=== PATIENT | female | born 1985 | race American Indian/Alaskan Native ===

== ENCOUNTER 2016-12-24 15:47 | Emergency (ER) | payer MEDICAID, OTHER | END 2016-12-24 16:30 | disposition left against medical advice (07) | LOC: DL.ED 15:47 | DX: Z53.21 Procedure and treatment not carried out due to patient leaving prior to being seen by health care provider (principal) ==

== ENCOUNTER 2017-02-26 10:16 | Emergency (ER) | payer MEDICAID, OTHER ==
[2017-02-26 10:30] VITALS: BP 116/56
--- NOTE | 2017-02-26 10:33 | EDM.PDOC ---
[id number] TOOTH Time Seen by Provider: 02/26/17 10:32 Source of Information: Reports: Patient, RN, RN Notes Reviewed History Limitations: Reports: No Limitations - History of Present Illness INITIAL COMMENTS - FREE TEXT/NARRATIVE: Complaint of severe dental pain wit swelling to left face, Onset several days ago of pain with swelling starting yesterday. Denies fever/chills or purulent drainage from tooth or gums. Has not been able to see a dentist, Quality: Reports: Ache Severity: Severe Improves with: Reports: None Worsens with: Reports: None Associated Symptoms: Reports: No Other Symptoms Upper Tooth/Teeth Pain Score (Numeric/FACES): 8 - Related Data Allergies Allergy/AdvReac Type Severity Reaction Status Date / Time No Known Allergies Allergy Verified 02/26/17 10:26 Home Meds: Home Meds Ibuprofen 200 mg PO ASDIRECTED PRN 10/09/15 [History] Past Medical History - Past Health History Medical/Surgical History: Denies Medical/Surgical History HEENT History: Reports: None Cardiovascular History: Reports: None Respiratory History: Reports: None Gastrointestinal History: Reports: Gastritis, GERD, Other (See Below) Other Gastrointestinal History: suruury as a young child to remove hair ball, ulcers Genitourinary History: Reports: None 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: 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: 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 Musculoskeletal History: Reports: None Neurological History: Reports: None Psychiatric History: Reports: None Endocrine/Metabolic History: Reports: None Hematologic History: Reports: None Immunologic History: Reports: None Oncologic (Cancer) History: Reports: None Dermatologic History: Reports: None - Infectious Disease History Infectious Disease History: Reports: None - Past Surgical History Head Surgeries/Procedures: Reports: None Social & Family History - Family History Family Medical History: Noncontributory - Tobacco Use Smoking Status *Q: Current Every Day Smoker Years of Tobacco use: 10 Packs/Tins Daily: 0.5 Used Tobacco, but Quit: No Second Hand Smoke Exposure: Yes - Caffeine Use Caffeine Use: Reports: Energy Drinks, Soda, Tea - Recreational Drug Use Recreational Drug Use: Yes Recreational Drug Type: Reports: Marijuana/Hashish Recreational Drug Use Frequency: Socially ED ROS ENT - Review of Systems Review Of Systems: ROS reveals no pertinent complaints other than HPI. ED EXAM, ENT - Physical Exam Exam: See Below Exam Limited By: No Limitations General Appearance: Alert, WD/WN, No Apparent Distress Eye Exam: Bilateral Eye: Normal Inspection Ears: Normal External Exam, Normal Canal, Hearing Grossly Normal, Normal TMs Nose: Normal Inspection, Normal Mucousa, No Blood Mouth/Throat: Normal Inspection, Normal Gums, Normal Lips, Normal Oropharynx, Normal Teeth Head: Other (swelling to left dface with tenderness with erythema, and with increased warmth. Left maxillary molars with extensive chronic decay and gum swelling and tenderness without fluctuance.) Neck: Normal Inspection, Supple, Non-Tender, Full Range of Motion Respiratory/Chest: No Respiratory Distress Cardiovascular: Normal Peripheral Pulses, Regular Rate, Rhythm, No Edema, No Gallop, No JVD, No Murmur, No Rub Neurological: Alert, Oriented, CN II-XII Intact, Normal Cognition, Normal Gait, Normal Reflexes, No Motor/Sensory Deficits Psychiatric: Normal Affect, Normal Mood Skin: Warm, Dry, Intact, Normal Color, No Rash Lymphatic: No Adenopathy Course - Vital Signs Last Recorded V/S: Last Vital Signs Temp 36.2 C 02/26/17 10:27 Pulse 70 02/26/17 10:27 Resp 16 02/26/17 10:27 BP 116/56 L 02/26/17 10:27 Pulse Ox 100 02/26/17 10:27 - Orders/Labs/Meds Meds: Medications Discontinued Medications Generic Name Dose Route Start Last Admin Trade Name Brandt PRN Reason Stop Dose Admin Amoxicillin 500 mg 02/26/17 10:37 02/26/17 10:44 Amoxil PO 02/26/17 10:38 500 mg ONETIME ONE Administration Clindamycin HCl 300 mg 02/26/17 10:37 02/26/17 10:44 Cleocin PO 02/26/17 10:38 300 mg ONETIME ONE Administration Lidocaine HCl 15 ml 02/26/17 10:37 02/26/17 10:44 Xylocaine 2% Viscous PO 02/26/17 10:38 15 ml ONETIME ONE Administration Tramadol HCl 50 mg 02/26/17 10:38 02/26/17 10:43 Ultram PO 02/26/17 10:39 50 mg ONETIME ONE Administration Departure - Departure Time of Disposition: 10:49 Disposition: Home, Self-Care 01 Condition: good Clinical Impression: Dental abscess, Dental caries extending into dentin - Discharge Information Instructions: Dental Abscess, [id number] Forms: ED Department Discharge Additional Instructions: Rx: Amoxicillin 500mg Rx: Clindamycin 300mg Rx: Tramadol 50mg Rx: Viscous Lidocaine 2% Follow up in clinic with dentist at first available appointment.
[2017-02-26] MEDS ORDERED: Clindamycin HCl 150 MG Cap PO ONE (10:37)
[2017-02-26] MEDS ORDERED: Lidocaine 2% Viscous Solution 15 ML Cup PO ONE (10:37)
[2017-02-26] MEDS ORDERED: Amoxicillin 500 MG Cap PO ONE (10:37)
[2017-02-26] MEDS ORDERED: traMADol 50 MG Tab PO ONE (10:38)
== END 2017-02-26 10:56 | disposition home or self-care (01) ==
LOC: DL.ED 10:16
DX: K08.89 Other specified disorders of teeth and supporting structures (principal); K02.9 Dental caries, unspecified; K21.9 Gastro-esophageal reflux disease without esophagitis; F17.210 Nicotine dependence, cigarettes, uncomplicated
CPT/HCPCS: 99282; A9270

== ENCOUNTER 2018-01-21 19:26 | Emergency (ER) | payer MEDICAID, OTHER ==
[2018-01-21 20:19] VITALS: BP 133/69
[2018-01-21] MEDS ORDERED: Acetaminophen 325 MG Tab PO ONE (21:18)
--- NOTE | 2018-01-21 21:23 | EDM.PDOC ---
ED HPI GENERAL MEDICAL PROBLEM - General Chief Complaint: Upper Extremity Injury/Pain Stated Complaint: [id number] FELL DOWN STAIRS AND HURT ELBOW Time Seen by Provider: 01/21/18 21:10 Source of Information: Reports: Patient History Limitations: Reports: No Limitations - History of Present Illness INITIAL COMMENTS - FREE TEXT/NARRATIVE: This 32 yo female patient reports to the ED due to right elbow pain. The patient reports that she fell while doing her mother's laundry this afternoon hitting and extending her elbow. The patient has been attempting to rest and has taken ibuprofen for her symptoms. The patient reports she attempted to be seen at the [facility], but was not able to get in to be seen this afternoon. The patient reports no numbness or reduced range of motion. The patient reports increased pain with extending or putting pressure on her elbow. 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 [No Known Home Meds] 01/21/18 [History] Past Medical History - Past Health History Medical/Surgical History: Denies Medical/Surgical History HEENT History: Reports: None Cardiovascular History: Reports: None Respiratory History: Reports: None Gastrointestinal History: Reports: Gastritis, GERD, Other (See Below) Other Gastrointestinal History: suruury as a young child to remove hair ball, ulcers. Inflamed spleen 10 years ago. 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, Musculoskeletal History: Reports: None Neurological History: Reports: None Psychiatric History: Reports: None Endocrine/Metabolic History: Reports: None Hematologic History: Reports: None Immunologic History: Reports: None Oncologic (Cancer) History: Reports: None Dermatologic History: Reports: None - Infectious Disease History Infectious Disease History: Reports: None - Past Surgical History Head Surgeries/Procedures: Reports: None Social & Family History - Family History Family Medical History: Noncontributory - Tobacco Use Smoking Status *Q: Current Every Day Smoker Years of Tobacco use: 13 Packs/Tins Daily: 1 Used Tobacco, but Quit: No Second Hand Smoke Exposure: No - Caffeine Use Caffeine Use: Reports: Coffee, Soda - Recreational Drug Use Recreational Drug Use: Yes Drug Use in Last 12 Months: Yes Recreational Drug Type: Reports: Marijuana/Hashish Recreational Drug Use Frequency: Daily Review of Systems - Review of Systems Review Of Systems: ROS reveals no pertinent complaints other than HPI. ED EXAM, GENERAL - Physical Exam Exam: See Below Exam Limited By: No Limitations General Appearance: Alert, WD/WN, Mild Distress, Thin Eye Exam: Bilateral Eye: Corneal Abrasion, Normal Inspection, PERRL Ears: Normal External Exam, Normal Canal, Hearing Grossly Normal, Normal TMs Nose: Normal Inspection, Normal Mucosa, No Blood Throat/Mouth: Normal Inspection, Normal Lips, Normal Teeth, Normal Gums, Normal Oropharynx, Normal Voice, No Airway Compromise Head: Atraumatic, Normocephalic Neck: Normal Inspection, Supple, Non-Tender, Full Range of Motion Respiratory/Chest: No Respiratory Distress, Lungs Clear, Normal Breath Sounds, No Accessory Muscle Use, Chest Non-Tender Cardiovascular: Normal Peripheral Pulses, Regular Rate, Rhythm, No Edema, No Gallop, No JVD, No Murmur, No Rub GI/Abdominal: Normal Bowel Sounds, Soft, Non-Tender, No Organomegaly, No Distention, No Abnormal Bruit, No Mass (Female) Exam: Deferred Rectal (Female) Exam: Deferred Back Exam: Normal Inspection, Full Range of Motion, NT Extremities: Normal Inspection, Normal Range of Motion, Non-Tender, Normal Capillary Refill, No Pedal Edema Neurological: Alert, Oriented, CN II-XII Intact, Normal Cognition, Normal Gait, Normal Reflexes, No Motor/Sensory Deficits Psychiatric: Normal Affect, Normal Mood Skin Exam: Warm, Dry, Intact, Normal Color, No Rash Lymphatic: No Adenopathy Course - Vital Signs Last Recorded V/S: Last Vital Signs Temp 36.8 C 01/21/18 20:11 Pulse 65 01/21/18 20:11 Resp 18 01/21/18 20:11 BP 133/69 01/21/18 20:11 Pulse Ox 100 01/21/18 20:11 - Orders/Labs/Meds Orders: Active Orders 24 hr Category Date Time Status DME for Discharge [COMM] Urgent Oth 01/21/18 21:19 Ordered Meds: Medications Discontinued Medications Generic Name Dose Route Start Last Admin Trade Name Brandt PRN Reason Stop Dose Admin Acetaminophen 650 mg 01/21/18 21:18 Tylenol PO 01/21/18 21:19 NOW ONE Departure - Departure Time of Disposition: 21:20 Disposition: Home, Self-Care 01 Condition: Fair Clinical Impression: Contusion of right elbow Qualifiers: Encounter type: initial encounter Qualified Code(s): S50.01XA - Contusion of right elbow, initial encounter - Discharge Information Instructions: Elbow Contusion Forms: ED Department Discharge Care Plan Goals: The patient was advised of the examination and x-ray results during the visit. The patient was placed in a sling for support. The patient was given a dose of Tylenol while in the ED. If the patient has any additional symptoms or concerns , the patient should follow-up with her primary care facility or return to the emergency department. - My Orders Last 24 Hours: My Active Orders 01/21/18 21:19 DME for Discharge [COMM] Urgent - Assessment/Plan Last 24 Hours: My Active Orders 01/21/18 21:19 DME for Discharge [COMM] Urgent
== END 2018-01-21 21:38 | disposition home or self-care (01) ==
LOC: DL.ED 19:26
DX: S50.01XA Contusion of right elbow, initial encounter (principal); F17.210 Nicotine dependence, cigarettes, uncomplicated; W10.9XXA Fall (on) (from) unspecified stairs and steps, initial encounter
CPT/HCPCS: 73080; 99283; A9270